=== PATIENT | male | born 1995 | race Caucasian/White ===

== ENCOUNTER 2023-03-19 14:33 | Day surgery (SDC) | payer BC ==
[~2023-03-19] VITALS: Ht 180.3 cm; Wt 127.0 kg
[2023-03-19] MEDS ORDERED: NORCO 325 MG-51 TAB PO ×2 (14:59→17:25)
[2023-03-19 15:00] VITALS: BP 151/87; PULSE 57; TEMP 97.1
[2023-03-19] MEDS ORDERED: FLOMAX 0.40.4 MG/CAP PO (15:00)
[2023-03-19] MEDS ORDERED: UROCIT-K 1010 MEQ PO (15:00)
[2023-03-19] MEDS ORDERED: PYRIDIUM 100MG100 MG PO (17:24)
[2023-03-19 18:50] VITALS: BP 128/64; PULSE 78; TEMP 98.1
[2023-03-19 19:05] VITALS: BP 131/74; PULSE 78
[2023-03-19 19:20] VITALS: BP 134/75; PULSE 75
[2023-03-19 19:35] VITALS: BP 132/71; PULSE 76
--- NOTE | 2023-03-19 20:39 | NUR ---
9903-6005: PT TO RECOVERY BAY 5 FROM PACU S/P CYSTO, LASER STONE ABLATION, LEFT URETEROSCOPY AND STENT REPLACEMENT A&O, PLACED ON MONITOR, VSS ON RA. DENIES COMPLAINT, NAD. HAS BEEN TOLERATING WATER. RECEIVED REPORT AND ASSUMED CARE OF PT FROM GABI PRAKASH GIRL FRIEND/RIDE BROUGHT TO BEDSIDE PROVIDED FOOD/FLUIDS, TOLERATING WELL PT C/O MILD-MODERATE SUPRAPUBIC AND LLQ IRRITATION - GIVEN SCHEDULED 1 GM APAP AND SL LEVSIN. PT HAS REMAINED A&O, NAD, VSS ON RA, TOLERATING PO, IS WITHOUT SIGNIFICANT COMPLAINT, WITH STEADY GAIT THRU OUT STAY IV D/C'D. D/C INSTRUCTIONS, ANY FOLLOW UP REVIEWED AND HANDED TO PT. ALL QUESTIONS AND CONCERNS ADDRESSED TO PT SATISFACTION. TAKEN TO EXIT VIA W/C WITH ALL BELONGINGS AND PAPERWORK IN HAND, ASSISTED INTO PASSENGER SEAT OF POV. G/F TO DRIVE HOME.
== END 2023-03-19 19:50 | disposition home or self-care (01) ==
LOC: SDCO 14:33
DX: N20.2 Calculus of kidney with calculus of ureter (principal)
CPT/HCPCS: C1769; C2617; J0690; J1100; J1885; J2405; J2704; J3010; J7120